=== PATIENT | female | born 1995 | race Caucasian/White ===

== ENCOUNTER 2025-04-08 12:47 | Inpatient (IN) | payer OTHER, MEDICAID ==
[2025-04-08] MEDS ORDERED: ACETAMINOPHEN 325 MG TABLET PO PRN (19:45)
[2025-04-08] MEDS ORDERED: IBUPROFEN 400 MG TABLET PO PRN (19:45)
[2025-04-08] MEDS ORDERED: PETROLATUM,WHITE 28 GM JELLY TP PRN (19:45)
[2025-04-08] MEDS ORDERED: ALBUTEROL SULFATE HFA 90 MCG/PUFF 8 GM INHALER IH PRN (19:45)
[2025-04-08] MEDS ORDERED: MAGNESIUM HYDROXIDE SUSPENSION 30 ML UDCUP PO PRN (19:45)
[2025-04-08] MEDS ORDERED: GuaiFENesin/D-METHORPHAN [SUGAR-FREE] 200-20MG/10 ML SYRUP UDCUP PO PRN (19:45)
[2025-04-08 20:30] VITALS: BP 140/106; PULSE 104; RESP 18; TEMP 97.3; O2SAT 100
[2025-04-08] MEDS: ZOLPIDEM TARTRATE 10 MG TABLET PO PRN (20:52)
[2025-04-08 21:40] VITALS: BP 140/106; PULSE 104; RESP 18; TEMP 97.3; O2SAT 100
[2025-04-08] MEDS ORDERED: PNEUMOCOCCAL VACCINE POLYVALENT 0.5 ML SYRINGE [PPSV23] IM. ONE (22:30)
[2025-04-09] VITALS (10 sets, daily range): BP systolic 118–171; BP diastolic 72–116; PULSE 78–154; RESP 16–18; TEMP 96.8–98.4; O2SAT 97–100
[2025-04-09] MEDS: NICOTINE 14 MG/24 HOUR PATCH TD PRN (01:09)
[2025-04-09 08:59] LABS: PLATELET COUNT (AUTO) 296 K/uL (150-450); RED BLOOD CELL COUNT(AUTO) 5.37 MIL/uL (4.00-5.20); RED CELL DISTRIBUTION WIDTH 18.5 % (11.5-14.5); WHITE BLOOD COUNT (AUTO) 5.5 K/uL (4.5-11.0)
[2025-04-09 09:29] LABS: ASPARTATE AMINOTRANSFERASE 51 U/L (15-37); CALCIUM, TOTAL 9.0 mg/dL (8.8-10.5); CHOL/HDL RATIO 3.6 (3.9-5.7); CREATININE 0.74 mg/dL (0.60-1.30); GLOMERULAR FILTR. RATE CALC > 60 mL/min (>60); GLUCOSE,RANDOM 87 mg/dL (70-110); HCG,QUANTITATIVE < 1 mIU/mL (0-6); LDL CHOL (CALC.) 100 mg/dL (0-130); SODIUM SERUM 138 mmol/L (136-145); TOTAL PROTEIN, SERUM 7.8 g/dL (6.4-8.2); UREA NITROGEN, BLOOD 6 mg/dL (7-18)
[2025-04-09] MEDS: BuPROPion HCL XL 150 MG ER TABLET PO SCH (12:45)
[2025-04-09] MEDS: NICOTINE POLACRILEX 2 MG LOZENGE PO PRN (17:15)
[2025-04-09] MEDS: PREGABALIN 50 MG CAPSULE PO SCH (17:56)
[2025-04-09] MEDS: POTASSIUM CHLORIDE 20 MEQ ER TABLET PO ONE (19:56)
[2025-04-10] MEDS: METOPROLOL SUCCINATE 50 MG ER TABLET PO SCH ×2 (01:56→10:00)
[2025-04-10 03:25] VITALS: BP 139/98; PULSE 83; RESP 16
[2025-04-10 08:12] VITALS: BP 101/78; PULSE 100; RESP 16; TEMP 97.6; O2SAT 100
[2025-04-10] MEDS ORDERED: METOPROLOL SUCCINATE 50 MG ER TABLET PO SCH (09:00)
[2025-04-10 11:28] VITALS: BP 139/102; PULSE 102; TEMP 97.1
[2025-04-10 20:07] VITALS: BP 134/82; PULSE 84; RESP 18; TEMP 97.8; O2SAT 98
[2025-04-11 08:11] VITALS: BP 134/92; PULSE 91; RESP 17; TEMP 98.4; O2SAT 98
[2025-04-11] MEDS: MAG HYDROX/ALUMINUM HYD/SIMETH ES 30 ML SUSPENSION UDCUP PO PRN (09:57)
[2025-04-11] MEDS: LACTULOSE 20 GM/30 ML SOLUTION UDCUP PO SCH (12:35)
[2025-04-11 16:48] VITALS: BP 143/98; PULSE 94; RESP 18; TEMP 97.4; O2SAT 97
[2025-04-11 20:37] VITALS: BP 128/85; PULSE 91; RESP 18; TEMP 97.7; O2SAT 98
[2025-04-12 08:15] VITALS: BP 155/100; PULSE 95; RESP 16; TEMP 97.6; O2SAT 99
[2025-04-12 08:59] LABS: APPEARANCE,URINE TURBID (CLEAR); GLUCOSE, URINE (UA) NEGATIVE (NEGATIVE); LEUKOCYTE ESTERASE ,URINE NEGATIVE (NEGATIVE); NITRATE,URINE NEGATIVE (NEGATIVE); OCCULT BLOOD,URINE LARGE (NEGATIVE); PH,URINE DRUG SCREEN 6.0 (5.0-8.0); SPECIFIC GRAVITIY, URINE 1.019 (1.003-1.030)
[2025-04-12 09:10] LABS: SQUAMOUS EPITHELIAL CELL,UR Many /LPF (None Seen)
[2025-04-12 09:11] LABS: ALCOHOL, URINE DRUG SCREEN NEGATIVE (NEGATIVE); AMPHET/METH SCREEN,URINE NEGATIVE (NEGATIVE); BARBITURATE SCREEN, URINE NEGATIVE (NEGATIVE); CANNABINOID SCREEN,URINE POSITIVE (NEGATIVE); COCAINE SCREEN,URINE POSITIVE (NEGATIVE); METHADONE SCREEN, URINE NEGATIVE (NEGATIVE)
[2025-04-12 23:46] VITALS: BP 138/90; PULSE 100; RESP 18; TEMP 97.3; O2SAT 98
[2025-04-13 08:29] VITALS: BP 141/110; PULSE 95; RESP 16; TEMP 97.6; O2SAT 99
[2025-04-13] MEDS: ONDANSETRON 4 MG TABLET PO PRN (10:53)
[2025-04-13 20:05] VITALS: BP 143/102; PULSE 89; RESP 18; TEMP 97.6; O2SAT 98
[2025-04-14 08:25] VITALS: BP 136/84; PULSE 60; RESP 18; TEMP 97.6; O2SAT 100
[2025-04-14] MEDS ORDERED: BUPR-50 PO (15:56)
[2025-04-14] MEDS ORDERED: QUET100T PO (15:57)
== END 2025-04-14 18:22 | disposition left against medical advice (07) | DRG 885 ==
LOC: B3A 17:32 → B2S 04-13 12:19
PROVIDERS: ADMIT Psychiatry & Neurology Child & Adolescent Psychiatry; ATTEND Psychiatry & Neurology Child & Adolescent Psychiatry
PROC: GZ56ZZZ Individual Psychotherapy, Supportive (ICD-10-PCS; 2025-04-09)
PROC: GZ58ZZZ Individual Psychotherapy, Cognitive-Behavioral (ICD-10-PCS; 2025-04-09)
PROC: GZ52ZZZ Individual Psychotherapy, Cognitive (ICD-10-PCS; principal; 2025-04-10)
DX: F25.0 Schizoaffective disorder, bipolar type (principal); F15.20 Other stimulant dependence, uncomplicated; E87.6 Hypokalemia; R00.0 Tachycardia, unspecified; I10 Essential (primary) hypertension; F41.9 Anxiety disorder, unspecified; F14.10 Cocaine abuse, uncomplicated; F10.10 Alcohol abuse, uncomplicated; Y90.9 Presence of alcohol in blood, level not specified; F12.20 Cannabis dependence, uncomplicated; I95.9 Hypotension, unspecified; Z91.014 Allergy to mammalian meats; Z91.0110 Allergy to milk products, unspecified; Z91.018 Allergy to other foods
CPT/HCPCS: 80053; 80061; 80307; 81001; 83036; 84132; 84439; 84443; 84702; 85025; 87081; 87086; 93005; Q0162

== ENCOUNTER 2025-04-09 21:02 | Emergency (ER) | payer OTHER ==
[~2025-04-09] VITALS: Ht 154.9 cm; Wt 64.0 kg
[2025-04-09 21:18] VITALS: TEMP 98.4
[2025-04-09 21:41] LABS: PLATELET COUNT (AUTO) 274 K/uL (150-450); RED BLOOD CELL COUNT(AUTO) 4.93 MIL/uL (4.00-5.20); RED CELL DISTRIBUTION WIDTH 18.2 % (11.5-14.5); WHITE BLOOD COUNT (AUTO) 4.4 K/uL (4.5-11.0)
[2025-04-09 21:46] LABS: CALCIUM, TOTAL 8.6 mg/dL (8.8-10.5); CREATININE 0.66 mg/dL (0.60-1.30); GLOMERULAR FILTR. RATE CALC > 60 mL/min (>60); GLUCOSE,RANDOM 101 mg/dL (70-110); SODIUM SERUM 138 mmol/L (136-145); UREA NITROGEN, BLOOD 5 mg/dL (7-18)
[2025-04-09 21:53] LABS: ASPARTATE AMINOTRANSFERASE 56 U/L (15-37); TOTAL PROTEIN, SERUM 7.1 g/dL (6.4-8.2)
[2025-04-09 21:57] LABS: TROPONIN I-HIGH SENSITIVITY Less Than 4 ng/L (<51)
[2025-04-09 22:04] LABS: ALCOHOL, BLOOD (SERUM) < 3 mg/dL (0-10)
[2025-04-09 22:35] LABS: PH,URINE DRUG SCREEN 7.5 (5.0-8.0)
[2025-04-09 22:36] LABS: ALCOHOL, URINE DRUG SCREEN NEGATIVE (NEGATIVE); AMPHET/METH SCREEN,URINE NEGATIVE (NEGATIVE); BARBITURATE SCREEN, URINE NEGATIVE (NEGATIVE); CANNABINOID SCREEN,URINE POSITIVE (NEGATIVE); COCAINE SCREEN,URINE NEGATIVE (NEGATIVE); METHADONE SCREEN, URINE NEGATIVE (NEGATIVE)
[2025-04-09] MEDS: METOPROLOL SUCCINATE 50 MG ER TABLET PO ONE (22:49)
[2025-04-09] MEDS: KETOROLAC TROMETHAMINE 30 MG/ML VIAL IM ONE (22:52)
[2025-04-09 23:47] VITALS: BP 128/86; PULSE 90; RESP 20; O2SAT 97
== END 2025-04-10 01:03 | disposition home or self-care (01) ==
LOC: EMS 21:02
DX: F32.9 Major depressive disorder, single episode, unspecified (principal); R00.0 Tachycardia, unspecified; R45.1 Restlessness and agitation; Z91.0110 Allergy to milk products, unspecified; Z91.018 Allergy to other foods; Z88.8 Allergy status to other drugs, medicaments and biological substances
CPT/HCPCS: 99285; 80048; 82248; 84484; 84703; 85025; 36415; 93005; 96372; 80307; J1885; G0480